=== PATIENT | female | born 1955 | race Caucasian/White ===

== ENCOUNTER 2020-11-22 06:53 | Day surgery (SDC) | payer MEDICARE ==
[~2020-11-22] VITALS: Ht 170.2 cm; Wt 81.5 kg
[2020-11-22] MEDS ORDERED: COZAAR 50MG50 MG/TAB PO (07:46)
[2020-11-22] MEDS ORDERED: CELEXA 20MG20 MG/TAB PO (07:46)
[2020-11-22] MEDS ORDERED: LIPITOR 40MG TA40 MG PO (07:46)
[2020-11-22] MEDS ORDERED: PRILOTC (07:48)
[2020-11-22] MEDS ORDERED: ASPIRIN 32325 MG/TAB PO (07:48)
[2020-11-22] MEDS ORDERED: MULTI-VITAMIN W1 TA2 PO (07:49)
[2020-11-22] MEDS ORDERED: BENADRYL25 M2 PO (07:49)
[2020-11-22 07:50] VITALS: BP 138/87; PULSE 82; TEMP 98.9
[2020-11-22 08:45] VITALS: BP 112/66; PULSE 81; TEMP 98
--- NOTE | 2020-11-22 08:45 | NUR ---
PATIENT TRANSPORTED PER CART FROM GI SUITE TO BAY 4 ACCOMPANIED BY ENDO RN. PATIENT ALERT AND TALKING WITH STAFF. PATIENT AMBULATES WITH SLOW STEADY GAIT WITH 1 ASSIST. PATIEHT DENIES C/O'S. MONITORS APPLIED. VSS ON ROOM AIR. AT BEDSIDE. VERBAL REPORT RECEIVED.
[2020-11-22 09:00] VITALS: BP 127/67; PULSE 83
--- NOTE | 2020-11-22 09:00 | NUR ---
VSS ON ROOM AIR. PATIENT EATS MUFFIN AND DRINKS WATER WITHOUT PROBLEMS. PATIENT DENIES C/O'S. PATIENT TALKS WITH .
[2020-11-22 09:15] VITALS: BP 122/60; PULSE 79
--- NOTE | 2020-11-22 09:15 | NUR ---
VSS ON ROOM AIR. DR ARIAS IN ROOM AND SPEAKS WITH PATIENT AND .
--- NOTE | 2020-11-22 09:25 | NUR ---
VSS ON ROOM AIR. PATIENT DENIES DISCOMFORT AND NAUSEA. IV SITE DC'D WITH CATHETER TIP INTACT. PRESSURE AND BANDAGE APPLIED. DISCHARG INSTRUCTIONS GIVEN VERBALLY AND DISCHARGE PACKET PROVIDED. QUESTIONS ANSWERED AND PATIENT AND VOICED UNDERSTANDING.
[2020-11-22 09:30] VITALS: BP 119/54; PULSE 88; TEMP 98.1
--- NOTE | 2020-11-22 09:30 | NUR ---
DISCHARGE VITAL STABLE. PATIENT CHANGES INTO STREET CLOTHES. DISCHARGED PER WHEEL CHAIR ACCOMPANIED BY AMB RN TO PRIVATE TRUCK DRIVEN BY .
== END 2020-11-22 09:40 | disposition home or self-care (01) ==
LOC: SDCO 06:53
DX: Z12.11 Encounter for screening for malignant neoplasm of colon (principal); K64.0 First degree hemorrhoids; K21.9 Gastro-esophageal reflux disease without esophagitis; I10 Essential (primary) hypertension; I48.91 Unspecified atrial fibrillation; E78.5 Hyperlipidemia, unspecified; Z86.010 Personal history of colon polyps; Z79.82 Long term (current) use of aspirin; Z88.2 Allergy status to sulfonamides; Z88.1 Allergy status to other antibiotic agents; Z96.643 Presence of artificial hip joint, bilateral; Z80.0 Family history of malignant neoplasm of digestive organs
CPT/HCPCS: G0105; J2704; J7120

== ENCOUNTER → 2021-05-29 | Outpatient (CLI) | payer MEDICARE ==
[~2021-05-29] MED LIST: ASPIRIN 32325 MG/TAB PO; BENADRYL25 M2 PO; CELEXA 20MG20 MG/TAB PO; COZAAR 50MG50 MG/TAB PO; LIPITOR 40MG TA40 MG PO; MULTI-VITAMIN W1 TA2 PO; PRILOTC
== END ==
LOC: MC.RAD 09:45
DX: Z12.31 Encounter for screening mammogram for malignant neoplasm of breast (principal)

== ENCOUNTER → 2022-06-07 | Outpatient (CLI) | payer MEDICARE | LOC: MC.RAD 09:57 | DX: Z12.31 Encounter for screening mammogram for malignant neoplasm of breast (principal) ==